=== PATIENT | male | born 1980 | race Caucasian/White ===

== ENCOUNTER 2019-12-24 08:43 | Outpatient (CLI) | payer OTHER, SELFPAY ==
--- NOTE | 2019-12-24 08:53 | ECHOL_ITS ---
Patient Info Name: Ubaldo Nowak Age: 39 years : 1980 Gender: Male Ht: 72 in Wt: 235 lbs BSA: 2.36 m2 HR: 88 bpm BP: 117 / 77 mmHg Heart Rhythm: Sinus Rhythm Technical Quality: Good Exam Date: 12/24/2019 8:42 AM Exam Location: [facility] Patient Status: Outpatient Admit Date: 12/24/2019 Staff Ordering Physician: Darren Hunter MD Microcomputer Technician: Edyta Dior RDCS Attending Provider: Darren Hunter MD Referring Physician: Elsa ROSARIO; Exam Type: CA echo limited Study Info Indications I51.9 - Heart disease, unspecified Strain analysis performed. Limited two-dimensional transthoracic echocardiogram is performed. History/Risk Factors Hypertension: No Dyslipidemia: No Congenital Heart Disease (CHD): No Peripheral Arterial Disease (PAD): No Myocardial Infarction ([place]): Yes Chronic Lung Disease: No Obesity: Yes Renal Disease: No Coronary Artery Disease (CAD) Yes Congestive Heart Failure (CHF): No Cardiomyopathy/LV Systolic Dysfunction: No Date of Prior [place]: 08/02/2019 Diabetes Mellitus: Type II COPD: No Tobacco Use: Never Cerebrovascular Disease: No Family History: Diabetes Mellitus, Coronary Artery Disease Deep Vein Thrombosis (DVT): None Dialysis: None Frailty Scale (CSHA): 1: Very Fit Cardiac Arrest: No Summary 1. Limited echocardiogram to assess EF. 2. Left ventricular chamber dimension is moderately enlarged. 3. Left ventricular systolic function is normal, estimated at 50-55%. 4. There is moderately increased left ventricular wall thickness. 5. The left ventricular diastolic function is indeterminate. 6. Global longitudinal strain is normal at -18.2%. Recommendations * Continue medical therapy for diabetes. Left Ventricle Tissue doppler is not performed. Limited echocardiogram to assess EF. Global longitudinal strain is normal at -18.2%. Left ventricular chamber dimension is moderately enlarged. Left ventricular systolic function is normal, estimated at 50-55%. There is moderately increased left ventricular wall thickness. The left ventricular diastolic function is indeterminate. Left Ventricular Outflow Tract Name Value Normal LVOT 2D LVOT Diameter 2.3 cm Aorta Name Value Normal Ascending Aorta Ao Root Diameter (MM) 3.3 cm Ao Root Diam Index (MM) 1.4 cm/m2 Aortic Valve Name Value Normal AV Regurgitation 2D LVOT Area 4.0 cm2 Ventricles Name Value Normal LV Dimensio
== END 2019-12-24 08:44 | disposition home or self-care (01) ==
PROVIDERS: PCP Family Medicine; Visit Provider Internal Medicine Cardiovascular Disease
DX: I51.9 Heart disease, unspecified (principal)
CPT/HCPCS: 93308

== ENCOUNTER 2020-05-13 17:26 | Emergency (ER) | payer OTHER, SELFPAY ==
[2020-05-13 17:45] VITALS: BP 128/79; PULSE 95; RESP 16; TEMP 36.7; O2SAT 98
--- NOTE | 2020-05-13 18:00 | ED.LOWEXIN ---
HPI - Extremity Injury (Lower) General Chief Complaint: Extremity Injury, Lower Stated Complaint: lump on leg Time Seen by Provider: 05/13/20 18:00 Source: patient Mode of arrival: ambulatory Limitations: no limitations History of Present Illness HPI Narrative: 39-year-old man comes in today complaining of a tender purple and red area on the medial aspect of his left thigh. Patient states that he does not recall any injury and noticed it a couple days ago. He has no personal family history of DVTs but his family is concerned about it. 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 He is a nonsmoker. MD complaint: thigh injury Type of Injury: unknown Severity: mild Relieving factors: nothing Exacerbating factors: palpation Associated symptoms: ambulatory Other symptoms: none Related Data Home Medications Medication Instructions Recorded Confirmed aspirin 81 mg tablet,delayed 81 mg PO DAILY 08/14/19 05/13/20 release atorvastatin 80 mg tablet 80 mg PO DAILY 08/14/19 05/13/20 carvedilol 3.125 mg tablet 3.125 mg PO BID tablet 08/14/19 05/13/20 lisinopril 10 mg tablet 10 mg PO DAILY 08/14/19 05/13/20 metformin 1,000 mg tablet 1,000 mg PO BID 08/14/19 05/13/20 omega-3 fatty acids 1,000 mg 1,000 mg PO DAILY 04/18/20 05/13/20 capsule dulaglutide [Trulicity] 1.5 mg SUBCUT WEEKLY 05/13/20 05/13/20 pantoprazole 40 mg PO DAILY 05/13/20 05/13/20 Allergies Allergy/AdvReac Type Severity Reaction Status Date / Time No Known Allergies Allergy Verified 04/18/20 15:15 Review of Systems Constitutional: Constitutional: Denies chills and Denies fever(s) Eyes: Eyes: Denies change in vision and Denies photophobia Cardiovascular: Cardiovascular: Denies chest pain and Denies radiating jaw, neck or arm pain Respiratory: Respiratory: Denies cough, Denies dyspnea and Denies wheezing Gastrointestinal: Gastrointestinal: Denies abdominal pain, Denies diarrhea, Denies nausea and Denies vomiting Musculoskeletal: Musculoskeletal: Denies back pain, Denies arthralgias and Denies joint swelling Integumentary/Breasts: Skin/Breast: Denies pruritus, Denies rash and Denies skin ulcer Neurologic: Denies vertigo, Denies dizziness and Denies syncope Hematologic/Lymphatic: Hematologic/Lymphatic: Denies easy bleeding and Denies easy bruising Allergic/Immunologic: Allergic/Immunologic: Denies lip swelling and Denies wheezing PMFSH Past Medical History Medical History Cigarette smoker (02/21/18) Elevated blood-pressure reading, without diagnosis of hypertension (09/11/16) History of acute myocardial infarction Hyperlipidemia associated with type 2 diabetes mellitus Hypertension associated with diabetes Obesity (BMI 30-39.9) Tobacco abuse Type 2 diabetes mellitus (09/11/16) Surgical History Surgical History History of heart artery stent Status post cardiac catheterization Social History Social History Smoking packs per day: 1.5 Smoking cigarettes per day: 30.0 Years smoked: 25 Smoking pack-years: 37.50 Smoking status: Former smoker Tobacco type: cigarettes Second hand tobacco smoke exposure: Yes Smoking end date: 08/07/19 Additional smoking assessment comments: Had [place], quit smoking after Alcohol intake: never Substance use: current Substance use type: marijuana 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
== END 2020-05-13 18:20 | disposition home or self-care (01) ==
PROVIDERS: Emergency Provider Emergency Medicine; PCP Internal Medicine
DX: S70.12XA Contusion of left thigh, initial encounter (principal)
CPT/HCPCS: 99281; 99282

== ENCOUNTER 2023-07-08 08:01 | Outpatient (CLI) | payer OTHER, SELFPAY ==
--- NOTE | 2023-07-08 08:14 | EST_ITS ---
Patient Info Name: Ubaldo Nowak Age: 42 years : 1980 Gender: Male Ht: 71 in Wt: 233 lbs BSA: 2.33 m2 HR: 62 bpm BP: 103 / 50 mmHg Heart Rhythm: Sinus Rhythm Technical Quality: Good Exam Date: 07/08/2023 9:41 AM Exam Location: [facility] Patient Status: Outpatient Admit Date: 07/08/2023 Staff Ordering Physician: Tonio, Priyanka Gil APRN Attending Provider: Tonio, Priyanka Gil APRN Exam Type: CA stress temo w NM Study Info A regadenoson stress test was performed. History/Risk Factors Hypertension: No Dyslipidemia: No Congenital Heart Disease (CHD): No Peripheral Arterial Disease (PAD): No Myocardial Infarction ([place]): Yes Chronic Lung Disease: No Obesity: Yes Renal Disease: No Coronary Artery Disease (CAD) Yes Congestive Heart Failure (CHF): No Cardiomyopathy/LV Systolic Dysfunction: No Date of Prior [place]: 08/02/2019 Diabetes Mellitus: Type II COPD: No Tobacco Use: Never Cerebrovascular Disease: No Family History: Diabetes Mellitus, Coronary Artery Disease Deep Vein Thrombosis (DVT): None Dialysis: None Frailty Scale (CSHA): 1: Very Fit Cardiac Arrest: No Summary 1. 1. Negative lexiscan stress test for ischemic ST changes by ECG criteria. 2. 2. Stable hemodynamics throughout the test. 3. 3. Nuclear scan to follow and will be reported separately. Please correlate with it. Protocol: LEXISCAN Stress ECG Details Stage: REST Duration (min): 3 min : 14 sec HR (bpm): 62 SBP (mmHg): 103 DBP (mmHg): 50 Stage: REST Duration (min): 7 min : 24 sec HR (bpm): 62 SBP (mmHg): 103 DBP (mmHg): 50 Stage: STAGE 1 Duration (min): 0 min : 10 sec HR (bpm): 62 SBP (mmHg): 103 DBP (mmHg): 50 Stage: RECOVERY Duration (min): 0 min : 49 sec HR (bpm): 78 SBP (mmHg): 103 DBP (mmHg): 50 Stage: RECOVERY Duration (min): 1 min : 49 sec HR (bpm): 89 SBP (mmHg): 107 DBP (mmHg): 50 Stage: RECOVERY Duration (min): 2 min : 49 sec HR (bpm): 83 SBP (mmHg): 107 DBP (mmHg): 55 Stage: RECOVERY Duration (min): 3 min : 49 sec HR (bpm): 84 SBP (mmHg): 105 DBP (mmHg): 58 Stage: RECOVERY Duration (min): 4 min : 49 sec HR (bpm): 83 SBP (mmHg): 102 DBP (mmHg): 59 Stage: RECOVERY Duration (min): 4 min : 56 sec HR (bpm): 84 SBP (mmHg): 102 DBP (mmHg): 59 Rest HR: 62 bpm Peak HR: 89 bpm Rest Sys BP: 103 mmHg Peak Sys BP: 107 mmHg Max Pred HR: 177 bpm % Max Pred HR: 50 % Target HR: 150 bpm Max RPP: 9,523 bpm*mmHg BP Response: Normal blood pressure response Termination Reason: Completed Protocol Cardiac Symptoms: None Total Time: 0 min : 10 sec Rest Paez BP: 50 mmHg Peak Paez BP: 55 mmHg Total Dose: 0.4 mg Resting ECG Sinus rhythm. Stress ECG No abnormal ST/T wave changes. Arrhythmias None. Report Signatures
--- NOTE | 2023-07-08 13:54 | WPDCARIOSTRE ---
Nuclear Stress Test INDICATIONS Indications: Chest pain, sob PROCEDURE Procedure Performed: Myocardial Perf Spect-Multi Procedure: Patient underwent a lexiscan stress test and immediately was injected with 30.5 mCi of cardiolyte. Multiple tomographic images were obtained. These are of good quality. There is evidence of large size, severe basal to mid lateral perfusion defect with stress imaging. A separate resting images were obtained after patient was injected with 10.2 mCi of cardiolyte. Multiple tomographic images were obtained. These are of good quality. There is evidence of large size, severe basal to mid lateral perfusion defect with rest imaging. CONCLUSION Conclusion: 1. Myocardial perfusion imaging demonstrating a fixed large size basal to mid lateral perfusion defect suggestive of prior myocardial infarct or scar. 2. No evidence of reversible ischemia. 3. Left ventriculogram demonstrates mildly reduced measured ejection fraction of 46% with lateral wall hypokinesis. 4. TID score 0.93 is normal.
== END 2023-07-08 08:02 | disposition home or self-care (01) ==
LOC: CHSIMG 08:03
PROVIDERS: PCP Internal Medicine; Visit Provider Internal Medicine Cardiovascular Disease
DX: I25.119 Atherosclerotic heart disease of native coronary artery with unspecified angina pectoris (principal); I25.5 Ischemic cardiomyopathy; Z95.5 Presence of coronary angioplasty implant and graft; R06.02 Shortness of breath; R07.9 Chest pain, unspecified; R26.2 Difficulty in walking, not elsewhere classified
CPT/HCPCS: 78452; 93017; A9502; J2785

== ENCOUNTER 2025-05-17 09:01 | Day surgery (SDC) | payer OTHER, SELFPAY ==
[2025-04-28 14:36] VITALS: BMI 33.9
[2025-05-17 09:48] VITALS: BP 112/80; PULSE 72; RESP 18; TEMP 36.4; O2SAT 98
--- OUTSIDE RECORDS SUMMARY | 2025-05-17 09:48 | XMS_ITS | Clinical Summary ---
Author Organization [facility] Address [address] [place] [address] Care Team Providers Care Crts Name Role Phone Keven Baig MD Primary Care Provider [phone] Allergies No known active allergies Medications metFORMIN (GLUCOPHAGE) 1,000 mg tablet Take 1,000 mg by mouth 2 (two) times a day with meals Active lisinopril (PRINIVIL,ZESTR IL) 10 mg tablet Take 10 mg by mouth daily Active dulaglutide (TRULICITY) 0.75 mg/0.5 mL pen injector Inject 0.75 mg under the skin every 7 days Active aspirin 81 mg enteric coated tabletIndicatio ns:cardiovascul ar disease Take 1 tablet (81 mg total) by mouth daily 30 tablet 08/10/2019 Active nitroglycerin (NITROSTAT) 0.[address] 1 tablet (0.4 mg total) under the tongue every 5 (five) minutes as needed for chest pain 30 tablet 08/09/2019 Active atorvastatin (LIPITOR) 80 mg tabletIndicatio ns:myocardial infarction prevention Take 1 tablet (80 mg total) by mouth nightly 90 tablet 3 08/24/2019 Active carvedilol (COREG) 3.125 mg tabletIndicatio ns:cardiovascul ar disease Take 1 tablet (3.125 mg total) by mouth 2 (two) times a day 180 tablet 3 08/24/2019 Active ticagrelor (BRILINTA) 90 mg tabletIndicatio ns:cardiovascul ar disease Take 1 tablet (90 mg total) by mouth 2 (two) times a day 180 tablet 3 08/24/2019 Active Active Problems Problem Noted Date Diagnosed Date Systolic dysfunction 08/24/2019 Mixed hyperlipidemia 08/24/2019 ST elevation myocardial infarction (STEMI) Type 2 diabetes mellitus wit h chronic kidney disease, without long-term current use of insulin Marijuana abuse Resolved Problems Problem Noted Date Diagnosed Date Resolved Date Tobacco abuse 08/24/2019 Immunizations Immunization Administration Dates Next Due Influenza, Unspecified 07/24/2019 Surgical History Surgery Date Site/Laterality Comments CORONARY ANGIOPLASTY CARDIAC CATHETERIZATION Medical History Medical History Date Comments Diabetes mellitus (HCC) Family History Medical History Relation Name Comments No Known Problems Father No Known Problems Mother Relation Name Status Comments Father Mother Social History Tobacco Use Types Packs/Day Years Used Date Smoking Tobacco: Former Cigarettes Q uit: 08/07/2019 Smokeless Tobacco: Never Alcohol Use Standard Drinks/Week Comments Not Currently 0 (1 standard drink = 0.6 oz pur e alcohol) Sex and Gender Information Value Date Recorded Sex Assigned at Not on file Legal Sex Male 5:00 PM CDT Gender Identity Not on file Sexual Orientation Not on file Obstetrics History Last Filed Vital Signs Vital Sign Reading Time Taken Comments Blood Pressure 114/70 08/24/2019 10:39 AM [employer]NAGER [employer] Pulse 83 08/24/2019 10:39 AM [employer] Temperature 36.7 C (98.1 F) 08/09/2019 7:20 AM [employer] Respiratory Rate 18 08/09/2019 7:20 AM [employer] Oxygen Saturation 100% 08/09/2019 7:20 AM MANA[employer] Inhaled Oxygen Concentration - - Weight 109.3 kg (241 lb) 08/24/2019 10:39 AM [employer] Height 179 cm (5' 10.47) 08/24/2019 10:39 AM CS T Body Mass Index 34.12 08/24/2019 10:39 AM 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 TRA[employer] Plan of Treatment Not on file Medical Devices Implanted Type Area Storekeeper Steward Device Identifier Shelf Expiration Date Model / Serial / Lot [employer] [id number] System Coronary Stent Xience Heather Everolimus L12 Mm Od3 Mm Rapid Exchange - [id number] Implanted:Qty: 1 on 08/07/2019 by Wilmer Agrawal MD at [facility] [employer] 04/28/2020 [id number] / / [employer] [id number] System Coronary Stent Xience Heather Everolimus L12 Mm Od2.5 Mm Rapid Exchange - [id number] Implanted:Qty: 1 on 08/07/2019 by Wilmer Agrawal MD at [facility] [employer] 05/25/2020 [id number] 2 / / shoply [id number] Device Closure Angio-Seal Vip Bondek-Plus Polyglyd L70 Cm Od6 Fr Odsec.035 In Vascular - [id number] Implanted:Qty: 1 on 08/07/2019 by Wilmer Agrawal MD at [facility] Daig [employer] [id number] / / Insurance O O Advance Directives For more information, please contact: [phone] * Full Code (Latest Code Status on File) Date Activated Date Inactivated Comments 08/07/2019 4:52 AM 08/09/2019 3:16 PM * Full Code Date Activated Date Inactivated Comments 08/07/2019 4:35 AM 08/07/2019 4:52 AM Care Teams Crts Relationship Specialty Start Date End Date Keven Baig MD [address] [place] [address] PCP - General Family Medicine 08/07/19
--- OUTSIDE RECORDS SUMMARY | 2025-05-17 09:48 | XMS_ITS | Patient Health Record ---
Author Organization [facility] Address [address] [place] [address] Care Team Providers Care Glue Bone Drier Name Role Phone Bob Peoples Primary Care Provider Reason For Referral No Information Immunizations Vaccine Route Administration Date Status Comme nts COVID-19 Moderna 1ST IM Intramuscular 11/10/2020 Administered EUA date 0. Screening reviewed and consent signed. Patient tolerated well. COVID-19 Moderna 2nd IM Intramuscular 12/08/2020 Administered Plan Of Treatment No Information Insurance Providers Payer Name Payer Address Payer Phone Subscriber Number Group Number Insured Name Patient Relationship to Insured Coverage Start Date Coverage End Date [employer] [address] [place] [id number] Ubaldo Nowak Self - patient is the insured 2020
[2025-05-17] MEDS: LACTATED RINGERS 1,000 ML 150 ML IV CONT (09:51)
--- NOTE | 2025-05-17 09:53 | WPDANESEPPF ---
Anes - Initial Pre Proc Eval Procedure: Operation Date: 05/17/25 11:00 Proposed Procedures p Screening Colonoscopy - Beltran Maynard DO Date/Time: 05/17/25 09:53 Surgeon: Beltran Maynard DO Pre Op Diagnosis: Neoplasm Screening Patient Data Age: 44 Gender: M Height: 1.83 m Weight: 108.95 kg Last Vital Signs Temp 97.5 F L 05/17/25 09:48 Pulse 72 05/17/25 09:48 Resp 18 05/17/25 09:48 BP 112/80 05/17/25 09:48 Pulse Ox 98 05/17/25 09:48 O2 Del Method Room Air 05/17/25 09:48 Allergies Allergy/AdvReac Type Severity Reaction Status Date / Time No Known Allergies Allergy Verified 05/17/25 09:46 Home Medications ?Medication ?Instructions ?Recorded ?Confirmed ?Type aspirin 81 mg tablet,delayed 81 mg PO DAILY 08/14/19 05/17/25 History release (Aspir-Low) atorvastatin 40 mg tablet 40 mg PO DAILY 04/28/25 05/17/25 History gabapentin 300 mg capsule 300 mg PO BID 04/28/25 05/17/25 History insulin glargine 100 unit/mL (3 60 unit subcut DAILY 04/28/25 05/17/25 History mL) subcutaneous pen (Lantus Solostar U-100 Insulin) insulin lispro 100 unit/mL 1 sliding scale dose subcut 04/28/25 05/17/25 History subcutaneous pen (Humalog KwikPen DIRECTED (U-100) Insulin) lisinopril 2.5 mg tablet 2.5 mg PO DAILY 04/28/25 05/17/25 History metoprolol tartrate 50 mg tablet 50 mg PO BID 04/28/25 05/17/25 History Patient hx anesthesia problems: none Family hx anesthesia problems: none Results Review: All pre-operative results and documents have been reviewed as part of the pre-operative evaluation. [facility] Past Medical History Medical History (System 09/29/20 @ 15:35 by Jayjay Pérez) Hypertension associated with diabetes Hyperlipidemia associated with type 2 diabetes mellitus Obesity (BMI 30-39.9) History of acute myocardial infarction Tobacco abuse Cigarette smoker (02/21/18) Elevated blood-pressure reading, without diagnosis of hypertension (09/11/16) Type 2 diabetes mellitus (09/11/16) Surgical History Surgical History (System 09/29/20 @ 15:35 by Jayjay Pérez) History of heart artery stent Status post cardiac catheterization Family History Family History (System 09/29/20 @ 15:35 by Jayjay Pérez) Other Acute myocardial infarction Breast cancer Cerebrovascular accident Diabetes mellitus Heart disease Hyperlipemia Hypertension Social History Social History (System 09/29/20 @ 15:35 by Jayjay Pérez) Smoking packs per day: 1.5 Smoking cigarettes per day: 30.0 Years smoked: 25 Smoking pack-years: 37.50 Smoking status: Former smoker Tobacco type: cigarettes Second hand tobacco smoke exposure: Yes Smoking end date: 08/07/19 Additional smoking assessment comments: Had [place], quit smoking after Alcohol intake: never Substance use: current Substance use type: marijuana Other substance usage details: daily Living arrangements: with family Occupation/Education: occupation 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 Informed Consent: The patient's anesthetic plan and its attendant risks and benefits were discussed with the patient/family/POA. Questions were solicited and answers provided to the satisfaction of the patient/family/POA.
--- NOTE | 2025-05-17 10:19 | PM.IMHP ---
H&P: HPI History of Present Illness Date/Time: 05/17/25 10:19 Chief Complaint: screening for colorectal cancer Narrative: this is a 44-year-old man who presents for his 1st colonoscopy. He denies any hematochezia or melena. He denies family history of colon cancer. Review of Systems Review of Systems: All systems reviewed & are unremarkable except as noted in HPI and below Constitutional: Constitutional: Denies chills, Denies fever(s), Denies headache(s) and Denies weight loss Eyes: Eyes: Denies change in vision ENT: Denies dizziness, Denies headache(s), Denies neck mass and Denies throat swelling Cardiovascular: Cardiovascular: Denies chest pain, Denies lightheadedness and Denies dyspnea Respiratory: Respiratory: Denies cough, Denies dyspnea and Denies wheezing Gastrointestinal: Gastrointestinal: Denies abdominal pain, Denies change in bowel habits, Denies nausea and Denies vomiting Genitourinary: Genitourinary: Denies hematuria and Denies dysuria Musculoskeletal: Musculoskeletal: Reports as per HPI Integumentary/Breasts: Skin/Breast: Reports as per HPI Neurologic: Denies dizziness and Denies headache(s) Allergic/Immunologic: Allergic/Immunologic: Denies throat swelling and Denies wheezing PMF Past Medical History Medical History (Updated 05/17/25 @ 10:21 by Beltran Maynard DO) Hypertension associated with diabetes Hyperlipidemia associated with type 2 diabetes mellitus Obesity (BMI 30-39.9) History of acute myocardial infarction Tobacco abuse Cigarette smoker (02/21/18) Elevated blood-pressure reading, without diagnosis of hypertension (09/11/16) Type 2 diabetes mellitus (09/11/16) Surgical History Surgical History (System 09/29/20 @ 15:35 by Jayjay Pérez) History of heart artery stent Status post cardiac catheterization Family History Family History (System 09/29/20 @ 15:35 by Jayjay Pérez) Other Acute myocardial infarction Breast cancer Cerebrovascular accident Diabetes mellitus Heart disease Hyperlipemia Hypertension Social History Social History (System 09/29/20 @ 15:35 by Jayjay Pérez) Smoking packs per day: 1.5 Smoking cigarettes per day: 30.0 Years smoked: 25 Smoking pack-years: 37.50 Smoking status: Former smoker Tobacco type: cigarettes Second hand tobacco smoke exposure: Yes Smoking end date: 08/07/19 Additional smoking assessment comments: Had [place], quit smoking after Alcohol intake: never Substance use: current Substance use type: marijuana Other substance usage details: daily Living arrangements: with family Occupation/Education: occupation Additional occupation/education comments: [employer] Gender identity (if verbalized by the patient): Male Spiritual care concerns: No Meds Home Medications and Allergies Home Medications ?Medication ?Instructions ?Recorded ?Confirmed ?Type aspirin 81 mg tablet,delayed 81 mg PO DAILY 08/14/19 05/17/25 History release (Aspir-Low) atorvastatin 40 mg tablet 40 mg PO DAILY 04/28/25 05/17/25 History gabapentin 300 mg capsule 300 mg PO BID 04/28/25 05/17/25 History insulin glargine 100 unit/mL (3 60 unit subcut DAILY 04/28/25 05/17/25 History mL) subcutaneous pen (Lantus Solostar U-100 Insulin) insulin lispro 100 unit/mL 1 sliding scale dose subcut 04/28/25 05/17/25 History subcutaneous pen (Humalog KwikPen DIRECTED (U-100) Insulin) lisinopril 2.5 mg tablet 2.5 mg PO DAILY 04/28/25 05/17/25 History metoprolol tartrate 50 mg tablet 50 mg PO BID 04/28/25 05/17/25 History Allergies Allergy/AdvReac Type Severity Reaction Status Date / Time No Known Allergies Allergy Verified 05/17/25 09:46 Vital Signs Vital Signs - 24 hr 05/17/25 09:48 Temperature 97.5 F L Pulse Rate 72 Respiratory Rate 18 Blood Pressure 112/80 Pulse Oximetry 98 Oxygen Delivery Room Air Exam Const: General: no acute distress and alert Orientation/consciousness: patient oriented x3 HENMT: Head: normocephalic and atraumatic Ears: hearing grossly normal bilaterally Face/Nose/Sinus: Normal nares present Mouth: Yes Normal oral and palatal mucosa present Eyes: Periorbital: periorbital findings normal Sclera: sclerae normal EOM: EOMs intact bilaterally Neck: Neck: normal visual inspection, no lymphadenopathy and trachea midline Chest: Chest palpation & inspection: normal inspection of the chest Resp: Effort & Inspection: normal respiratory effort Auscultation: clear to auscultation bilaterally Cardio: Jugular venous distension: no JVD Rate: regular rate Rhythm: regular rhythm Heart sounds: S1 normal heart sound present and S2 normal heart sound present Peripheral pulses: Peripheral pulses 2+ throughout GI: Inspection: normal to inspection GI Palp: Yes Soft to palpation, No Tenderness to palpation present (GI), No Guarding due to palpation present (GI) and No Rebound tenderness present Percussion: Yes normal to percussion Auscultation: normal bowel sounds : General: Yes no CVA tenderness Back/Spine/Pelvis: Back: no CVA tenderness Neuro: General: patient oriented x3, no focal motor deficits and CN's II-XI intact bilaterally Cognition (Neuro): normal cognition Speech: normal speech Motor exam (neuro): 5/5 motor strength present throughout Extrem: General: capillary refill normal and no clubbing, cyanosis or edema Assessment and Plan Assessment and plan (1) Screening for colorectal cancer: Code(s): Z12.11 - Encounter for screening for malignant neoplasm of colon; Z12.12 - Encounter for screening for malignant neoplasm of rectum Status: Acute Assessment and Plan: I have recommended colonoscopy. I have discussed the procedure, risks, benefits, and alternatives. Questions were answered. Patient is agreeable to proceed.
--- NOTE | 2025-05-17 10:31 | WPDANESPN ---
Anes - Prog Note Post-Op Date/Time: 05/17/25 10:31 Vital Signs: Last Vital Signs Temp 97.5 F L 05/17/25 09:48 Pulse 72 05/17/25 09:48 Resp 18 05/17/25 09:48 BP 112/80 05/17/25 09:48 Pulse Ox 98 05/17/25 09:48 O2 Del Method Room Air 05/17/25 09:48 Pain Score (VAS): no 05/17/25 09:56 POC Capillary Glucose 162 H Patient Feedback: Patient satisfied with anesthetic care.
[2025-05-17 10:42] VITALS: BP 95/69; PULSE 67; RESP 18; O2SAT 95
[2025-05-17 10:52] VITALS: BP 109/79; PULSE 67; RESP 17; O2SAT 97
[2025-05-17 11:02] VITALS: BP 116/87; PULSE 63; RESP 18; O2SAT 97
== END 2025-05-17 11:16 | disposition home or self-care (01) ==
PROVIDERS: PCP Internal Medicine; Visit Provider Surgery
PROC: 0DJD8ZZ Inspection of Lower Intestinal Tract, Via Natural or Artificial Opening Endoscopic (ICD-10-PCS; CPT 45378; principal; 2025-05-17 11:00)
DX: Z12.11 Encounter for screening for malignant neoplasm of colon (principal); K63.5 Polyp of colon
CPT/HCPCS: 45380

== ENCOUNTER 2025-05-17 13:29 | Outpatient (NON) | payer OTHER, SELFPAY ==
--- NOTE | 2025-05-17 | S_PTH ---
PATIENT: Ubaldo Nowak LOC: [facility]#:[id number] AGE/SX: 44/M ROOM: RE05/17/[address]: Beltran Maynard DO : 1980 BED: DIS: 05/17/2025 SPEC #: [id number] RECD: 05/18/25 13:59 STATUS: NARENDRA REQ #: [id number] RAQUEL: 05/17/25 00:[address]: Beltran Maynard DEPT: [facility] Surgical RECD BY: Ale Ballard MLT, ([facility]) ENTERED: 05/18/25 14:00 SP TYPE: Surgical OTHR DR: Roel Spears MD Tissues: A - Polyp Procedures: Hematoxylin and Eosin Stain Gross and Microscopic Level 4
--- OUTSIDE RECORDS SUMMARY | 2025-05-18 15:08 | XMS_ITS | Patient Health Record ---
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
--- OUTSIDE RECORDS SUMMARY | 2025-05-18 15:08 | XMS_ITS | Clinical Summary ---
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 Name Role Phone Keven Baig MD Primary Care Provider [phone] Allergies No known active allergies Medications metFORMIN [...] Comments Blood Pressure 114/70 08/24/2019 10:39 AM MONEY ROOM TELLER Pulse 83 08/24/2019 10:39 AM MONEY ROOM TELLER Temperature 36.7 C (98.1 F) 08/09/2019 7:20 AM MONEY ROOM TELLER Respiratory Rate 18 08/09/2019 7:20 AM MONEY ROOM TELLER Oxygen Saturation 100% 08/09/2019 7:20 AM MONEY ROOM TELLER Inhaled Oxygen Concentration - - Weight 109.3 kg (241 lb) 08/24/2019 10:39 AM MONEY ROOM TELLER Height 179 cm (5' 10.47) 08/24/2019 10:39 AM CS T Body Mass Index 34.12 08/24/2019 10:39 AM MONEY ROOM TELLER Plan of Treatment Not on file Medical Devices Implanted Type Area Cement Mason Helper Device Identifier Shelf Expiration Date Model / Serial / Lot [employer] [id number] System Coronary Stent Xience Heather Everolimus L12 Mm Od3 Mm Rapid Exchange - [id number] Implanted:Qty: 1 on 08/07/2019 by Wilmer Agrawal MD at [facility] [employer] 04/28/2020 [id number] / / [employer] [id number] System Coronary Stent Xience Heather Everolimus L12 Mm Od2.5 Mm Rapid Exchange - [id number] Implanted:Qty: 1 on 08/07/2019 by Wilmer Agrawal MD at [facility] [employer] 05/25/2020 [id number] / / [employer] [id number] Device Closure Angio-Seal Vip Bondek-Plus Polyglyd L70 Cm Od6 Fr Odsec.035 In Vascular - [id number] Implanted:Qty: 1 on 08/07/2019 by Wilmer Agrawal MD at [facility] [employer] [id number] / / Insurance O O Advance Directives For more information, please contact: [phone] * Full Code (Latest Code Status on File) Date Activated Date Inactivated Comments 08/07/2019 4:52 AM 08/09/2019 3:16 PM * Full Code Date Activated Date Inactivated Comments 08/07/2019 4:35 AM 08/07/2019 4:52 AM Care Teams Marshmallow Machine Worker Relationship Specialty Start Date End Date Keven Baig MD [address] [place] [address] PCP - General Family Medicine 08/07/19
== END 2025-05-17 13:30 | disposition home or self-care (01) ==
LOC: ANHLAB 05-18 13:30
PROVIDERS: PCP Internal Medicine; Visit Provider Surgery
DX: Z12.11 Encounter for screening for malignant neoplasm of colon (principal)
CPT/HCPCS: 88305